=== PATIENT | female | born 1940 | race Caucasian/White ===

== ENCOUNTER → 2016-03-28 | Outpatient (CLI) | payer MEDICARE ==
[2016-03-28 12:23] LABS: PROTHROMBIN TIME 27.5 SEC (11.4-15.4)
== END ==
LOC: LAB 11:41
PROVIDERS: ATTEND Internal Medicine
DX: Z79.01 Long term (current) use of anticoagulants (principal)
CPT/HCPCS: 36415; 85610

== ENCOUNTER → 2016-05-02 | Outpatient (CLI) | payer MEDICARE ==
[2016-05-02 11:12] LABS: PROTHROMBIN TIME 23.4 SEC (11.4-15.4)
== END ==
LOC: LAB 10:55
PROVIDERS: ATTEND Internal Medicine
DX: Z79.01 Long term (current) use of anticoagulants (principal)
CPT/HCPCS: 36415; 85610

== ENCOUNTER → 2016-05-30 | Outpatient (CLI) | payer MEDICARE ==
[2016-05-30 13:35] LABS: PROTHROMBIN TIME 23.3 SEC (11.4-15.4)
== END ==
LOC: LAB 13:00
PROVIDERS: ATTEND Internal Medicine
DX: Z79.01 Long term (current) use of anticoagulants (principal)
CPT/HCPCS: 36415; 85610

== ENCOUNTER → 2016-07-04 | Outpatient (CLI) | payer MEDICARE | LOC: LAB 11:30 | PROVIDERS: ATTEND Internal Medicine | DX: Z79.01 Long term (current) use of anticoagulants (principal); Z51.81 Encounter for therapeutic drug level monitoring | CPT/HCPCS: 36415; 85610 ==

== ENCOUNTER → 2016-07-29 | Outpatient (CLI) | payer MEDICARE ==
[2016-07-29 10:57] LABS: PROTHROMBIN TIME 20.5 SEC (11.4-15.4)
== END ==
LOC: LAB 10:01
PROVIDERS: ATTEND Internal Medicine
DX: Z79.01 Long term (current) use of anticoagulants (principal); Z51.81 Encounter for therapeutic drug level monitoring
CPT/HCPCS: 36415; 85610

== ENCOUNTER → 2016-08-10 | Outpatient (CLI) | payer MEDICARE ==
[2016-08-10 12:06] LABS: PROTHROMBIN TIME 21.2 SEC (11.4-15.4)
== END ==
LOC: LAB 11:36
PROVIDERS: ATTEND Internal Medicine
DX: Z79.01 Long term (current) use of anticoagulants (principal)
CPT/HCPCS: 36415; 85610

== ENCOUNTER 2016-08-12 10:46 | Inpatient (IN) | payer MEDICARE, OTHER ==
--- NOTE | 2016-08-12 11:25 | RADIOLOGY REPORT (SQ) ---
EXAM DESCRIPTION: CT HEAD WITHOUT COMPLETED DATE/TIME: 08/12/2016 11:07 am REASON FOR STUDY: RIGHT SIDE WEAKNESS COMPARISON: None. TECHNIQUE: Axial images acquired through the brain without intravenous contrast. Images reviewed wi th bone, brain and subdural windows. Images stored on PACS. All CT scanners at this facility use dose modulation, iterative reconstruction, and/or weight based d osing when appropriate to reduce radiation dose to as low as reasonably achievable (ALARA). [facility]: Dose Right [facility]: CareDose [facility]: Dose Right [facility]: Teradose 4D [facility]: [employer] RADIATION DOSE: 64.61 mGy. LIMITATIONS: None. FINDINGS: VENTRICLES: Prominent. CEREBRUM: No masses. No hemorrhage. No midline shift. Areas of low density in the white matter mos t likely due to chronic micro-vascular ischemic change. No evidence for acute infarction. CEREBELLUM: No masses. No hemorrhage. No alteration of density. No evidence for acute infarction. EXTRAAXIAL SPACES: Mild age-related involutional change. No fluid collections. No masses. ORBITS AND GLOBE: No intra- or extraconal masses. Normal contour of globe without masses. CALVARIUM: No fracture. PARANASAL SINUSES: No fluid or mucosal thickening. SOFT TISSUES: No mass or hematoma. OTHER: No other significant finding. IMPRESSION: No acute abnormality in the brain. TECHNICAL DOCUMENTATION: JOB ID: [id number] Quality ID # [id number]: Final reports with documentation of one or more dose reduction techniques (e.g., Au tomated exposure control, adjustment of the mA and/or kV according to patient size, use of iterative reconstruction technique) 2010 [employer] All Rights Reserved
--- NOTE | 2016-08-12 11:31 | ER Document Report ---
ED Neuro Symptoms/Deficit - General Chief Complaint: Weakness Stated Complaint: POSSIBLE STROKE Time Seen by Provider: 08/12/16 11:16 Mode of Arrival: Stretcher Information source: Patient TRAVEL OUTSIDE OF THE [place] IN LAST 30 DAYS: No - HPI Patient complains to provider of: Difficulty standing, Difficulty walking, Weakness Onset: Just prior to arrival Awoke with symptoms: No Quality of pain: No pain Baseline Cognitive: Alert, oriented X 3 Baseline Gait: Walks w/o assistance Alert To: Name/Voice Patient Orientation: Person, Place, Time, Events New weakness: RUE, RLE Decreased ability to stand/walk: Off balance Associated symptoms: None Similar symptoms previously: Yes Recently seen / treated by doctor: Yes Notes: Patient is a 76-year-old female with a history of TIA 4 years ago, as well as mitral valve and tricuspid valve repair, history of a flutter in the past, who presents to the emergency room complaining of right-sided weakness that started just prior to arrival, patient was at cardiac rehab for maintenance therapy when she developed weakness and was unable to ambulate on the treadmill which she generally does, she does note that her INR was taken on Monday and noted to be 1.7, she was advised to take an extra half the dose of Coumadin on Monday , she takes 6 mg daily on the regular, she denies any headache, no shortness of breath or chest pain, her symptoms are improved since arriving to the emergency room as she reports she only feels minimal weakness in the right upper and lower extremity - Related Data Allergies/Adverse Reactions: adhesive tape [Adhesive Tape] Allergy (Verified 08/23/11 01:40) alendronate sodium [From Fosamax] Allergy (Verified 08/23/11 01:40) codeine [Codeine] Allergy (Verified 08/23/11 01:40) nickel [Nickel] Allergy (Verified 08/23/11 01:40) nitrofurantoin [Nitrofurantoin] Allergy (Verified 08/23/11 01:40) pseudoephedrine HCl [From Sudafed] Allergy (Verified 08/23/11 01:40) Sulfa (Sulfonamide Antibiotics) Allergy (Verified 08/23/11 01:40) diltiazem HCl [From Cardizem] Adverse Reaction (Intermediate, Verified 08/26/11 11:29) Past Medical History - General Information source: Patient - Social History Smoking Status: Never Smoker Family History: Reviewed & Not Pertinent Patient has suicidal ideation: No Patient has homicidal ideation: No - Past Medical History Cardiac Medical History: Reports: Hx Heart Murmur Denies: Hx Atrial Fibrillation, Hx Congestive Heart Failure, Hx Coronary Artery Disease, Hx Heart Attack, Hx Hypercholesterolemia, Hx Hypertension, Hx Peripheral Vascular Disease, Hx Pulmonary Embolism Pulmonary Medical History: Reports: Hx Bronchitis Denies: Hx Asthma, Hx COPD, Hx Pneumonia, Hx Respiratory Failure, Hx Sleep Apnea, Hx Tuberculosis Neurological Medical History: Denies: Hx Cerebrovascular Accident, Hx Seizures Renal/ Medical History: Denies: Hx End Stage Renal Disease, Hx Kidney Stones, Hx Ovarian Cysts, Hx Peritoneal Dialysis, Hx Pelvic Inflammatory Disease Malignancy Medical History: Denies: Hx Breast Cancer, Hx Cervical Cancer, Hx Leukemia, Hx Lung Cancer, Hx Ovarian Cancer GI Medical History: Denies: Hx Crohn's Disease, Hx Gastroesophageal Reflux Disease, Hx Hepatitis, Hx Hiatal Hernia, Hx Irritable Bowel, Hx Liver Failure, Hx Ulcer Infectious Medical History: Denies: Hx Hepatitis, Hx HIV Past Surgical History: Reports: Hx Appendectomy, Hx Section, Hx Hysterectomy, Hx Tonsillectomy. Denies: Hx Bowel Surgery, Hx Cholecystectomy, Hx Colostomy, Hx Coronary Artery Bypass Graft, Hx Gastric Bypass Surgery, Hx Herniorrhaphy, Hx Mastectomy, Hx Open Heart Surgery, Hx Pacemaker, Hx Tubal Ligation - Immunizations Hx Diphtheria, Pertussis, Tetanus Vaccination: Yes Hx Pneumococcal Vaccination: 03/13/06 Review of Systems - Review of Systems Constitutional: No symptoms reported EENT: No symptoms reported Cardiovascular: No symptoms reported Respiratory: No symptoms reported Gastrointestinal: No symptoms reported Genitourinary: No symptoms reported Female Genitourinary: No symptoms reported Musculoskeletal: No symptoms reported Skin: No symptoms reported Hematologic/Lymphatic: No symptoms reported Neurological/Psychological: See HPI -: Yes All other systems reviewed and negative Physical Exam - Vital signs Vitals: Temp Pulse Resp BP Pulse Ox 97.6 F 71 16 139/92 H 97 08/12/16 10:48 08/12/16 10:48 08/12/16 10:48 08/12/16 10:48 08/12/16 10:48 Interpretation: Normal - General General appearance: Appears well, Alert - HEENT Head: Normocephalic, Atraumatic Eyes: Normal Pupils: PERRL - Respiratory Respiratory status: No respiratory distress Chest status: Nontender Breath sounds: Normal Chest palpation: Normal - Cardiovascular Rhythm: Regular Heart sounds: S1 appreciated, S2 appreciated Murmur: No - Abdominal Inspection: Normal Distension: No distension Bowel sounds: Normal Tenderness: Nontender Organomegaly: No organomegaly - Back Back: Normal, Nontender - Extremities General upper extremity: Normal inspection, Nontender, Normal color, Normal temperature General lower extremity: Normal inspection, Nontender, Normal color, Normal temperature. No: Lynn's sign - Neurological Neuro grossly intact: Yes Cognition: Normal Orientation: AAOx4 [place] Coma Scale Eye Opening: Spontaneous [place] Coma Scale Verbal: Oriented Jannie Coma Scale Motor: Obeys Commands [place] Coma Scale Total: 15 Speech: Normal Cranial nerves: Facial palsy - Right-sided facial droop Motor strength normal: LUE, LLE. No: RUE, RLE - Right upper extremity/right lower extremity 4/5 strength Sensory: Normal - Psychological Associated symptoms: Normal affect, Normal mood - Skin Skin Temperature: Warm Skin Moisture: Dry Skin Color: Normal Course - Re-evaluation Re-evalutation: 08/12/16 12:34 Reports feeling much better, she was able to ambulate to the bathroom without difficulty, she continues to have a very slight right-sided facial droop but all other symptoms are completely resolved at this point in time, patient was discussed with the hospitalist who agrees to admit as an observation for likely TIA, for further evaluation and treatment - Vital Signs Vital signs: Temp Pulse Resp BP Pulse Ox 97.6 F 71 16 139/92 H 98 08/12/16 10:48 08/12/16 10:48 08/12/16 10:48 08/12/16 10:48 08/12/16 11:22 - Laboratory Result Diagrams: 08/12/16 11:20 08/12/16 11:20 - Diagnostic Test Radiology reviewed: Image reviewed, Reports reviewed - EKG Interpretation by Me EKG shows normal: Sinus rhythm Rate: Normal Rhythm: NSR - Transfer of Care Care transferred to following provider: Dr. Love Critical Care Note - Critical Care Note Total time excluding time spent on procedures (mins): 30 Comments: Acute onset right-sided weakness consistent with CVA/TIA, requiring frequent reevaluation, observation and admission to hospitalist service ED [employer]/Exc Criteria - Date/Time patient last known well: Date/Time: 08/12/2016 1000 - Date/Time patient arrived in ED: _: 08/12/2016 1048 - Inclusion Criteria: 1: Patient presented to ED within 3 hours of acute ischemic stroke symptom onset ? -: Yes 2: Did baseline CT exclude intracranial hemorrhage and/or other risk factors? -: Yes 3: Is the age of the patient 18 years of age or greater? -: Yes : If any of the above questions are answered "NO" then stop, patient is not a candidate for Alteplase, : If all of the above questions are answered "YES" then continue with Exclusion Criteria. - Exclusion Criteria: 1: Is there evidence of intracranial hemorrhage on baseline CT? -: No 2: Is there suspicion of subarachnoid hemorrhage (even if CT negative)? -: No 3: Is there a history of serious head trauma, recent previous stroke or MD within 3 months? -: No 4: Does the patient have a clinical presentation consistent with MD or post-MD pericarditis? -: No 5: Is there history of intracranial hemorrhage? -: No 6: On repeated measurement is Systolic BP greater than 185mmHg or Diastolic BP greater that 110 mmHg and is aggressive treatment needed to reduce blood pressure to these limits (e.g. constant infusion of an anti-hypertensive)? -: No 7: Did the patient awake with stroke symptoms? -: No 8: Has the patient had a lumbar puncture or an arterial puncture at a non- compressile site within 7 days? -: No 9: With in the last 14 days did the patient have surgery or major trauma? -: No 10: Is the patient or less than 2 weeks? -: No 11: Was there any active bleeding or acute trauma? -: No 12: Does the patient have intracranial neoplasm, arteriovenous malformation or aneurysm? -: No 13: Does the patient have abnormal glucose (less than 50 or greater than 400mg/ dl)? Record glucose in Comment. -: No 14: Patient has rapidly improving symptoms at the time Alteplase is to be Administered. -: Yes 15: Does the patient have any risks for bleeding, including but not limited to: a.: Current use of Coumadin with PT greater than 15 seconds or INR greater than 1.7. b.: Current use of Pradaxa (Dabigatran). c.: Heparin administereed within the past 48 hours and PTT elevated. d.: Platelet count less than 100,000/mm. e.: Major surgery or serious trauma within 14 days. f.: Gastrointestinal or gynecological urinary bleeding within 14 days. g.: Myocardial Infarction (MD) within 3 months. -: No : If the answer to any of the above questions is "YES" then stop, the patient is not a candidate for Alteplase. : If the answer to all of the above questions is "NO" then the patient may be eligible for the Administration of Alteplase. : If the patient is noted to have seizure activity at onset of Stroke symptoms; Consult Neurologist for further evaluation. - The patient is: -: Included and is eligible to receive Alteplase. *Initiate bed placement at higher level of care* Reviewd risks & benefits of thrombolytic therapy: I have reviewed the risks and benefits of thrombolytic therapy with the patient and/or his/her family. -: Excluded and not eligible to receive Alteplase for the above exclusions. --: Yes - Rapidly improving symptoms -: Excluded and not eligible to receive Alteplase for other reasons (specify in comments): - Diagnosis of TIA: -: Patient presented with transient symptoms that are now resolved and no other neurologic findings are currently present. List symptoms in comments. -: Yes -: Patient is NOT a candidate for tPA. -: Yes -: ____(put name in comment) has been consulted for admission and continued evaluation of risk factor assessment. Comment: Ivan Discharge - Discharge Clinical Impression: Subtherapeutic anticoagulation Transient ischemic attack Qualifiers: Transient cerebral ischemia type: unspecified Qualified Code(s): G45.9 - Transient cerebral ischemic attack, unspecified Condition: Stable Disposition: ADMITTED OBSERVATION Admitting Provider: Hospitalist Unit Admitted: Telemetry Referrals: CLAUDIA BARROS MD [Primary Care Provider] - Follow up as needed
[2016-08-12 11:40] LABS: ABSOLUTE BASOPHILS # (AUTO) 0.1 10^3/uL (0.0-0.2); ABSOLUTE EOSINOPHILS # (AUTO) 0.1 10^3/uL (0.0-0.6); ABSOLUTE LYMPHOCYTES (AUTO) 1.3 10^3/uL (0.5-4.7); ABSOLUTE MONOCYTES (AUTO) 0.6 10^3/uL (0.1-1.4); ABSOLUTE NEUT (AUTO) 4.1 10^3/uL (1.7-8.2); BASOPHILS % (AUTO) 0.9 % (0-2); EOSINOPHILS % (AUTO) 1.4 % (0-6); HEMATOCRIT 43.4 % (36.0-47.0); HEMOGLOBIN 14.6 g/dL (12.0-15.5); HGB HCT DIFFERENCE 0.4; LYMPHOCYTES % (AUTO) 21.1 % (13-45); MEAN CORPUSCULAR HEMOGLOBIN 31.7 pg (27.0-33.4); MEAN CORPUSCULAR HGB CONC 33.6 g/dL (32.0-36.0); MEAN CORPUSCULAR VOLUME 94 fl (80-97); MONOCYTES % (AUTO) 9.2 % (3-13); PARTIAL THROMBOPLASTIN TIME 40.5 SEC (23.5-35.8); PROTHROMBIN TIME 23.1 SEC (11.4-15.4); RED CELL DISTRIBUTION WIDTH 13.1 % (11.5-14.0); SEGMENTED NEUTROPHILS % (AUTO) 67.4 % (42-78); WHITE BLOOD COUNT 6.1 10^3/uL (4.0-10.5)
--- NOTE | 2016-08-12 11:44 | RADIOLOGY REPORT (SQ) ---
EXAM DESCRIPTION: CHEST SINGLE VIEW COMPLETED DATE/TIME: 08/12/2016 11:20 am REASON FOR STUDY: RIGHT SIDE WEAKNESS COMPARISON: 08/22/2011 EXAM PARAMETERS: NUMBER OF VIEWS: One view. TECHNIQUE: Single frontal radiographic view of the chest acquired. RADIATION DOSE: NA LIMITATIONS: None. FINDINGS: LUNGS AND PLEURA: The lungs are hyperexpanded. There are no pulmonary infiltrates or pleu ral effusions. MEDIASTINUM AND HILAR STRUCTURES: No masses. Contour normal. HEART AND VASCULAR STRUCTURES: Heart normal in size. Normal vasculature. BONES: No acute findings. HARDWARE: Surgical clips in the upper mediastinum. OTHER: No other significant finding. IMPRESSION: Chronic lung changes with no acute cardiopulmonary disease. TECHNICAL DOCUMENTATION: JOB ID: [id number]
[2016-08-12 12:02] LABS: ALANINE AMINOTRANSFERASE 32 U/L (9-52); ALBUMIN 4.2 g/dL (3.5-5.0); ALKALINE PHOSPHATASE 84 U/L (38-126); ANION GAP 11 (5-19); ASPARTATE AMINO TRANSFERASE 30 U/L (14-36); BILIRUBIN,DIRECT 0.2 mg/dL (0.0-0.4); BILIRUBIN,TOTAL 0.7 mg/dL (0.2-1.3); BLOOD UREA NITROGEN 19 mg/dL (7-20); CALCIUM 9.6 mg/dL (8.4-10.2); CARBON DIOXIDE 27 mmol/L (22-30); CHLORIDE 102 mmol/L (98-107); CREATINE KINASE 96 U/L (30-135); CREATININE RESULT 0.79 mg/dL (0.52-1.25); GLUCOSE 88 mg/dL (75-110); POTASSIUM 4.6 mmol/L (3.6-5.0); SODIUM 140.1 mmol/L (137-145); TOTAL PROTEIN 7.3 g/dL (6.3-8.2)
[2016-08-12 12:20] LABS: CREATINE KINASE MB 0.83 ng/mL (<4.55)
[2016-08-12 12:22] LABS: TROPONIN I < 0.012 ng/mL
--- NOTE | 2016-08-12 13:51 | PDOC H&P ---
History of Present Illness Admission Date/PCP: 08/12/16 12:42 CLAUDIA BARROS, Patient complains of: weakness History of Present Illness: KOJO SALAS is a 76 year old female pt of Dr Saxena who presents from cardiac rehab where she had been working out on the treadmill when she suddenly noted numbness of her right foot that progressed to include her right arm and then affected her speech with some slurring, all of which is similar to when she had her CVA 4 yrs ago. she denies recent illness, cough, congestion, CALZ[place], dizziness, palpitations, fevers/chills, stiff neck, difficulty swallowing. review of the old record shows MRI with Left sided ischemic CVA. eval in ED shows persistent mild paresthesias but resolution of her weakness an improving slurred speech. she is already on coumadin & ASA for chronic afib and valve repairs with INR 1.93 so with resolving symptoms she is not candidate for thrombolytics. Past Medical History Cardiac Medical History: Reports: Heart Murmur Denies: Atrial Fibrillation, Congestive Heart Failure, Coronary Artery Disease, Myocardial Infarction, Hyperlipidema, Hypertension, Peripheral Vascular Disease, Pulmonary Embolism Pulmonary Medical History: Reports: Bronchitis Denies: Asthma, Chronic Obstructive Pulmonary Disease (COPD), Pneumonia, Respiratory Failure, Sleep Apnea, Tuberculosis Neurological Medical History: Denies: Seizures Renal/ Medical History: Denies: End Stage Renal Disease Malignancy Medical History: Denies: Breast Cancer, Cervical Cancer, Leukemia, Lung Cancer, Ovarian Cancer GI Medical History: Denies: Crohn's Disease, Gastroesophageal Reflux Disease, Hepatitis, Hiatal Hernia Hematology: Reports: Anemia - acute blood loss after heart valve repair Denies: Hemophilia, Sickle Cell Disease Infectious Medical History: Denies: HIV Past Surgical History Past Surgical History: Reports: Appendectomy, Section, Hysterectomy, Tonsillectomy Denies: Amputation, Cholecystectomy, Colostomy, Coronary Artery Bypass Graft , Gastric Bypass Surgery, Herniorrhaphy, Mastectomy, Pacemaker, Tubal Ligation Social History Information Source: Patient Smoking Status: Never Smoker Frequency of Alcohol Use: None Hx Recreational Drug Use: No Hx Prescription Drug Abuse: No - Advance Directive Resuscitation Status: Full Code Family History Family History: Reviewed & Not Pertinent Parental Family History Reviewed: Yes Children Family History Reviewed: Yes Sibling(s) Family History Reviewed.: Yes Medication/Allergy Allergies/Adverse Reactions: adhesive tape [Adhesive Tape] Allergy (Verified 08/23/11 01:40) alendronate sodium [From Fosamax] Allergy (Verified 08/23/11 01:40) codeine [Codeine] Allergy (Verified 08/23/11 01:40) nickel [Nickel] Allergy (Verified 08/23/11 01:40) nitrofurantoin [Nitrofurantoin] Allergy (Verified 08/23/11 01:40) pseudoephedrine HCl [From Sudafed] Allergy (Verified 08/23/11 01:40) Sulfa (Sulfonamide Antibiotics) Allergy (Verified 08/23/11 01:40) diltiazem HCl [From Cardizem] Adverse Reaction (Intermediate, Verified 08/26/11 11:29) Review of Systems Constitutional: ABSENT: chills, fever(s), headache(s), weight gain, weight loss Eyes: ABSENT: visual disturbances Ears: ABSENT: hearing changes Cardiovascular: ABSENT: chest pain, dyspnea on exertion, edema, orthropnea, palpitations Respiratory: ABSENT: cough, hemoptysis Gastrointestinal: ABSENT: abdominal pain, constipation, diarrhea, hematemesis, hematochezia, nausea, vomiting Genitourinary: ABSENT: dysuria, hematuria Musculoskeletal: ABSENT: joint swelling Integumentary: ABSENT: rash, wounds Neurological: PRESENT: abnormal speech, focal weakness, numbness, paresthesias. ABSENT: abnormal gait, confusion, dizziness, syncope Psychiatric: ABSENT: anxiety, depression, homidical ideation, suicidal ideation Endocrine: ABSENT: cold intolerance, heat intolerance, polydipsia, polyuria Hematologic/Lymphatic: ABSENT: easy bleeding, easy bruising Physical Exam Vital Signs: Temp Pulse Resp BP Pulse Ox 97.6 F 71 17 134/68 H 100 08/12/16 10:48 08/12/16 12:00 08/12/16 13:16 08/12/16 13:16 08/12/16 13:16 General appearance: PRESENT: no acute distress, well-developed, well-nourished Head exam: PRESENT: atraumatic, normocephalic Eye exam: PRESENT: EOMI. ABSENT: conjunctival injection, nystagmus, scleral icterus Mouth exam: PRESENT: moist, neck supple Neck exam: PRESENT: full ROM. ABSENT: tenderness, thyromegaly, tracheal deviation Respiratory exam: PRESENT: clear to auscultation loreta. ABSENT: accessory muscle use Cardiovascular exam: PRESENT: RRR. ABSENT: systolic murmur Pulses: PRESENT: normal radial pulses, normal dorsalis pedis pul Vascular exam: PRESENT: normal capillary refill GI/Abdominal exam: PRESENT: normal bowel sounds, soft. ABSENT: tenderness Extremities exam: PRESENT: pedal edema. ABSENT: calf tenderness Musculoskeletal exam: PRESENT: ambulatory, full ROM Neurological exam: PRESENT: alert, awake, oriented to person, oriented to place , oriented to time, oriented to situation, reflexes normal, motor sensory deficit - numbness Rt cheek; 3 beat clonus left, 2 beat clonus right ankle. ABSENT: CN II-XII grossly intact - slurred speech, blunted Rt nasolabial fold, left corner of mouth fails to elevate with smile Psychiatric exam: PRESENT: appropriate affect, normal mood Results Laboratory Results: labs reviewed and unremarkable Impressions: Chest X-Ray 08/12/16 10:54 IMPRESSION: Chronic lung changes with no acute cardiopulmonary disease. Head CT 08/12/16 10:54 IMPRESSION: No acute abnormality in the brain. Status: Image reviewed by me - agree with rads Assessment & Plan - Diagnosis (1) CVA (cerebral vascular accident) Qualifiers: CVA mechanism: unspecified Qualified Code(s): I63.9 - Cerebral infarction, unspecified Is this a current diagnosis for this admission?: YesPlan: persistent but improving symptoms that may not resolve within 24 hrs; admit for overnight monitoring on telemetry. ck MRI brain, carotid dopplers. she reports nl lipid panel at her cardiologists office just a couple weeks ago. ck B12 level. continue ASA and coumadin, discussed addition of statin for its anti -inflammatory and plaque stabilizing characteristics but she is resistant. (2) Valvular disease Is this a current diagnosis for this admission?: YesPlan: stable. hx of tricuspid and mitral annuloplasty. (3) Chronic a-fib Is this a current diagnosis for this admission?: YesPlan: in NSR on monitor at present, continue tikosyn from home once dose confirmed. continue anticoagulation - Time Time Spent: 50 to 70 Minutes Medications reviewed and adjusted accordingly: Yes Anticipated discharge: Home Within: within 48 hours - Inpatient Certification Based on my medical assessment, after consideration of the patient's comorbidities, presenting symptoms, or acuity I expect that the services needed warrant INPATIENT care.: Yes I certify that my determination is in accordance with my understanding of Medicare's requirements for reasonable and necessary INPATIENT services [42 CFR 412.3e].: Yes Medical Necessity: Significant Comorbidiites Make Outpatient Treatment Too Risky , Need Close Monitoring Due to Risk of Patient Decompensation, Need For Continuous Telemetry Monitoring, Risk of Diagnosis Which Will Require Inpatient Eval/Care/Monitoring
[2016-08-12] MEDS ORDERED: ACETAMINOPHEN 325 MG TABLET PO PRN (13:54)
[2016-08-12] MEDS ORDERED: ONDANSETRON HCL INJ/PF 4 MG/2 ML SDV IV PRN (14:00)
[2016-08-12 14:22] LABS: MAGNESIUM 2.2 mg/dL (1.6-2.3); PHOSPHORUS 3.7 mg/dL (2.5-4.5)
--- NOTE | 2016-08-12 17:06 | EKG REPORT ---
SEVERITY:- ABNORMAL ECG - SINUS RHYTHM LEFT AXIS DEVIATION PROBABLE ANTEROSEPTAL INFARCT, AGE INDETERM BORDERLINE PROLONGED QT INTERVAL : Confirmed by: Emmanuel Can 12-Aug-2016 17:06:12
--- NOTE | 2016-08-12 17:56 | RADIOLOGY REPORT (SQ) ---
EXAM DESCRIPTION: CAROTID DOPPLER COMPLETED DATE/TIME: 08/12/2016 5:23 pm REASON FOR STUDY: CVA R53.1 WEAKNESS COMPARISON: None. TECHNIQUE: Grayscale ultrasound, Doppler velocity and spectra, and color Doppler images acquired of the extra-cranial carotid and vertebral arteries. Images stored on PACS. LIMITATIONS: None. FINDINGS: RIGHT CAROTID CCA Velocities: Peak systolic proximally 76 centimeters/second, peak systolic distal 61 centimeters/s econd ICA Velocities Peak systolic 89 cm/s. End diastolic 33 cm/s. Proximal ICA/CCA peak systolic ratio 1.4. Spectra normal. No significant plaque. LEFT CAROTID CCA Velocities: Peak systolic proximal 95 peak systolic distal 76 ICA Velocities Peak systolic 94 cm/s. End diastolic 34 cm/s. Proximal ICA/CCA peak systolic ratio 1.2. Spectra normal. No significant plaque. VERTEBRAL ARTERIES: Antegrade flow. Normal waveforms. SUBCLAVIAN ARTERIES: No finding. OTHER: No other significant finding. IMPRESSION: NO HEMODYNAMICALLY SIGNIFICANT STENOSIS. COMMENT: Quality ID #[id number]: Velocity criteria are extrapolated from the diameter data as defined by t he Society of Radiologists in Ultrasound Consensus Conference. Radiology 2003: 229; 340-346. TECHNICAL DOCUMENTATION: JOB ID: [id number] [employer]- All Rights Reserved
--- NOTE | 2016-08-12 18:27 | RADIOLOGY REPORT (SQ) ---
EXAM DESCRIPTION: MRI HEAD WITHOUT COMPLETED DATE/TIME: 08/12/2016 6:11 pm REASON FOR STUDY: acute neurologic syndrome R53.1 WEAKNESS COMPARISON: Head CT from 08/12/2016 and MRI from 06/14/2013 TECHNIQUE: Multiplanar imaging includes non-contrasted T1, T2, FLAIR, and diffusion with ADC map seq uences. Images stored on PACS. LIMITATIONS: None. FINDINGS: ANATOMY: No anomalies. Normal vascular flow voids. Pituitary fossa normal. CSF SPACES: Atrophy induced prominence of ventricles and CSF spaces. CEREBRUM: High signal intensity lesions scattered throughout the white matter on FLAIR imaging with d istribution suggesting micro-vascular ischemic changes. Multiple foci of chronic hemosiderin scatter ed throughout. No evidence of acute hemorrhage, mass, or extraaxial fluid collection. POSTERIOR FOSSA: Multiple scattered foci of chronic hemosiderin. No acute hemorrhage. No edema, roberto s or mass effect. Internal auditory canals, cerebello-pontine angles, mastoids normal. DIFFUSION IMAGING: Single punctate focus of mild restricted diffusion within the superficial white ma tter john frontal lobe may represent acute lacunar infarct type infarct. ORBITS: No masses. Globes normal. PARANASAL SINUSES: No fluid levels. Mucosa normal. OTHER: No other significant finding. IMPRESSION: SINGLE PUNCTATE FOCUS OF MILDLY RESTRICTED DIFFUSION INVOLVING THE SUPERFICIAL WHITE MAT TER RIGHT FRONTAL LOBE MAY REPRESENT ACUTE LACUNAR-TYPE INFARCT. NO LARGE TERRITORY INFARCT, ACUTE H EMORRHAGE, OR MASS LESION IDENTIFIED. MULTIPLE FOCI OF CHRONIC HEMOSIDERIN THROUGHOUT CAN BE SEEN WITH CHRONIC HYPERTENSION OR AMYLOID LI OPATHY. CORRELATE CLINICALLY. ADDITIONAL SENESCENT CHANGE ABOVE. TECHNICAL DOCUMENTATION: JOB ID: [id number]- All Rights Reserved
[2016-08-13] MEDS ORDERED: DOFETILIDE 125 MCG CAPSULE ONE (01:19)
[2016-08-13] MEDS ORDERED: DOFETILIDE 125 MCG CAPSULE PO ONE (01:30)
[2016-08-13] MEDS ORDERED: DOFETILIDE 125 MCG CAPSULE PO SCH (10:00)
[2016-08-13] MEDS ORDERED: ASPIRIN 81 MG TABLET, ENT COATED PO SCH (10:00)
[2016-08-13 10:21] VITALS: BP 134/60
--- NOTE | 2016-08-13 14:03 | PDOC DISCHARGE SUMMARY ---
General - Admit/Disc Date/PCP Admission Date/Primary Care Provider: 08/12/16 13:56 CLAUDIA BARROS, Discharge Date: 08/13/16 - Discharge Diagnosis (1) CVA (cerebral vascular accident) Is this a current diagnosis for this admission?: YesSummary: MRI confirms small lacunar type infarct, her only residual symptom is Rt pronator drift otherwise she is back to baseline and stable for dc home. she is to resume her coumadin and other home meds, discuss with dr dia about adding statin. continue low dose ASA. (2) Valvular disease Is this a current diagnosis for this admission?: Yes (3) Chronic a-fib Is this a current diagnosis for this admission?: Yes - Additional Information Resuscitation Status: Full Code Discharge Diet: As Tolerated Discharge Activity: Activity As Tolerated Home Medications: Aspirin [Adult Low Dose Aspirin EC] 81 mg PO DAILY 08/12/16 Dofetilide [Tikosyn] 250 mg PO Q12 08/12/16 Metoprolol Tartrate [Lopressor 25 mg Tablet] 12.5 mg PO Q12 08/12/16 Hernando-3 Fatty Acids/Fish Oil [Theragran-M 1,200 mg Softgel] 1 tab PO DAILY 08/12 Warfarin Sodium [Coumadin] 6 mg PO DAILY 08/12/16 History of Present Illness Patient complains of: rt weak, slurred speech History of Present Illness: KOJO SALAS is a 76 year old female pt of Dr Saxena who presents from cardiac rehab where she had been working out on the treadmill when she suddenly noted numbness of her right foot that progressed to include her right arm and then affected her speech with some slurring, all of which is similar to when she had her CVA 4 yrs ago. she denies recent illness, cough, congestion, CALZADA, dizziness, palpitations, fevers/chills, stiff neck, difficulty swallowing. review of the old record shows MRI with Left sided ischemic CVA. Hospital Course Hospital Course: eval in ED shows persistent mild paresthesias but resolution of her weakness an improving slurred speech. she is already on coumadin & ASA for chronic afib and valve repairs with INR 1.93 so with resolving symptoms she is not candidate for thrombolytics. she was admitted and monitored overnight without significant findings on telemetry, no ectopy and her rate remained controlled. her symptoms resolved overnight and she is stable and anxious for d/c home. MRI shows a new small lacunar infarct, see report for details. carotid dopplers were negative for plaque or obstruction/occlusion. labs unremarkable. she is stable for d/c home at this time, return ot the ED for worsening condition, f/u PCP next week for INR/coumadin dose adjustment and routine hosp f /u Physical Exam Vital Signs: Temp Pulse Resp BP Pulse Ox 98.8 F 71 16 134/60 H 98 08/13/16 10:23 08/13/16 10:23 08/13/16 10:23 08/13/16 10:23 08/13/16 10:23 Intake & Output 08/12/16 08/13/16 08/14/16 06:59 06:59 06:59 Intake Total 1384 Balance 1384 Weight 67.6 kg General appearance: PRESENT: no acute distress, well-developed, well-nourished Head exam: PRESENT: atraumatic, normocephalic Eye exam: PRESENT: EOMI, PERRLA. ABSENT: conjunctival injection, scleral icterus Mouth exam: PRESENT: moist, neck supple Neck exam: ABSENT: carotid bruit, tenderness Respiratory exam: PRESENT: clear to auscultation loreta. ABSENT: accessory muscle use Cardiovascular exam: PRESENT: RRR. ABSENT: systolic murmur Pulses: PRESENT: normal radial pulses, normal dorsalis pedis pul Vascular exam: PRESENT: normal capillary refill GI/Abdominal exam: PRESENT: normal bowel sounds, soft. ABSENT: tenderness Neurological exam: PRESENT: alert, awake, oriented to time, oriented to situation, reflexes normal, normal gait. ABSENT: aphasic Psychiatric exam: PRESENT: appropriate affect, normal mood Skin exam: PRESENT: dry, warm Results Impressions: Carotid Doppler Study 08/12/16 00:00 IMPRESSION: NO HEMODYNAMICALLY SIGNIFICANT STENOSIS. Chest X-Ray 08/12/16 10:54 IMPRESSION: Chronic lung changes with no acute cardiopulmonary disease. Head CT 08/12/16 10:54 IMPRESSION: No acute abnormality in the brain. Head MRI 08/12/16 14:01 IMPRESSION: SINGLE PUNCTATE FOCUS OF MILDLY RESTRICTED DIFFUSION INVOLVING THE SUPERFICIAL WHITE MATTER RIGHT FRONTAL LOBE MAY REPRESENT ACUTE LACUNAR-TYPE INFARCT. NO LARGE TERRITORY INFARCT, ACUTE HEMORRHAGE, OR MASS LESION IDENTIFIED. MULTIPLE FOCI OF CHRONIC HEMOSIDERIN THROUGHOUT CAN BE SEEN WITH CHRONIC HYPERTENSION OR AMYLOID ANGIOPATHY. CORRELATE CLINICALLY. ADDITIONAL SENESCENT CHANGE ABOVE. Qualifiers PATEINT BEING DISCHARGED WITH ANY OF THE FOLLOWING DIAGNOSIS?: Stroke VTE patient discharged on overlapping Therapy?: Yes Stroke Pt being discharged on Anti-thrombolytic therapy?: Yes Stroke Pt being discharged on Anti-coagulation therapy?: Yes Stroke Pt being discharged on Statins?: No Reason(s) for not prescribing Statins therapy:: Drug declined by patient Plan Discharge Plan: f/u PCP in one week Time Spent: Greater than 30 Minutes
== END 2016-08-13 11:14 | disposition home or self-care (01) | DRG 65 ==
LOC: ER 10:46 → UNDOADMOB 12:42 → EH 12:42 → OBSVTOIN 13:56 → 3W 18:00
PROVIDERS: ADMIT Internal Medicine; ATTEND Internal Medicine
DX: I63.9 Cerebral infarction, unspecified (principal); G81.91 Hemiplegia, unspecified affecting right dominant side; R47.81 Slurred speech; R29.810 Facial weakness; I48.2 Chronic atrial fibrillation; I08.1 Rheumatic disorders of both mitral and tricuspid valves; Z79.01 Long term (current) use of anticoagulants; Z86.73 Personal history of transient ischemic attack (TIA), and cerebral infarction without residual deficits; Z88.2 Allergy status to sulfonamides; Z88.6 Allergy status to analgesic agent; Z88.8 Allergy status to other drugs, medicaments and biological substances; Z90.49 Acquired absence of other specified parts of digestive tract; Z90.710 Acquired absence of both cervix and uterus; Z98.890 Other specified postprocedural states
CPT/HCPCS: 36415; 70450; 70551; 71010; 80053; 82550; 82553; 82607; 83735; 84100; 84443; 84484; 85025; 85610; 85730; 93005; 93010; 93880; 99291; G8978-GP; G8979-GP; G8980-GP; J3490

== ENCOUNTER → 2016-08-17 | Outpatient (CLI) | payer MEDICARE, OTHER ==
[2016-08-17 11:11] LABS: PROTHROMBIN TIME 22.6 SEC (11.4-15.4)
== END ==
LOC: LAB 10:07
PROVIDERS: ATTEND Internal Medicine
DX: Z79.01 Long term (current) use of anticoagulants (principal)
CPT/HCPCS: 36415; 85610

== ENCOUNTER 2019-01-01 08:57 | Inpatient (IN) | payer MEDICARE, OTHER ==
--- NOTE | 2019-01-01 09:25 | ER Document Report ---
ED Neuro Symptoms/Deficit - General Chief Complaint: Weakness Stated Complaint: WEAKNESS Time Seen by Provider: 01/01/19 09:11 Primary Care Provider: CLAUDIA BARROS MD [ACTIVE STAFF] - Follow up as needed TRAVEL OUTSIDE OF THE [place] IN LAST 30 DAYS: No - HPI Notes: Patient is a 78-year-old female that presents to the emergency department for chief complaint of right hand numbness and difficulty ambulating. Patient states at 10:30 PM last night she started to feel numbness in her right hand. When she woke up this morning the numbness was still present. She states she has had a hard time ambulating today and feels off balance. She denies dizziness. Patient does have a history of stroke and TIA in the past. She is anticoagulated on Eliquis for history of atrial fibrillation. Patient denies recent head injury. Past Medical History: TIA, Stroke, Afib, HTN Past Surgical History: Reviewed in chart Social History: Denies drugs alcohol or tobacco, lives independently at home. Family History: Reviewed and noncontributory for presenting illness Allergies: Reviewed, see documented allergy list. REVIEW OF SYSTEMS: CONSTITUTIONAL : No fever No chills No diaphoresis No recent illness EENT: No vision changes No congestion No sore throat CARDIOVASCULAR: No chest pain No palpitations RESPIRATORY: No shortness of breath No cough No difficulty breathing GASTROINTESTINAL: No abdominal pain No nausea No vomiting No diarrhea GENITOURINARY: No dysuria No hematuria No difficulty urinating MUSCULOSKELETAL: No back pain No leg pain No arm pain SKIN: No rashes No lesions LYMPHATIC: No swollen, enlarged glands. NEUROLOGICAL: No lightheadedness No headache weakness paresthesias PSYCHIATRIC: No anxiety No depression PHYSICAL EXAMINATION: Vital signs reviewed, nursing noted reviewed. GENERAL: Well-appearing, well-nourished and in no acute distress. HEAD: Atraumatic, normocephalic. EYES: Eyes appear normal, extraocular movements intact, sclera anicteric, conjunctiva are normal. ENT: nares patent, oropharynx clear without exudates. Moist mucous membranes. NECK: Normal range of motion, supple without lymphadenopathy LUNGS: Breath sounds clear to auscultation bilaterally and equal. No wheezes rales or rhonchi. HEART: Regular rate and rhythm without murmurs ABDOMEN: Soft, nontender, normoactive bowel sounds. No rebound, guarding, or rigidity. No masses appreciated. EXTREMITIES: Nontender, good range of motion, no pitting or edema. NEUROLOGICAL: Alert, GCS 15, NIH 3. Right lower extremity weakness. No drift with right upper extremity but grizzly worker strength less on right than compared to l eft. Mildly slurred speech. Slight right facial droop. Sensory grossly intact on exam. PSYCH: Normal mood, normal affect. SKIN: Warm, Dry, normal turgor, no rashes or lesions noted on exposed skin - Related Data Allergies/Adverse Reactions: adhesive tape [Adhesive Tape] Allergy (Verified 08/23/11 01:40) alendronate sodium [From Fosamax] Allergy (Verified 08/23/11 01:40) codeine [Codeine] Allergy (Verified 08/23/11 01:40) nickel [Nickel] Allergy (Verified 08/23/11 01:40) nitrofurantoin [Nitrofurantoin] Allergy (Verified 08/23/11 01:40) pseudoephedrine HCl [From Sudafed] Allergy (Verified 08/23/11 01:40) Sulfa (Sulfonamide Antibiotics) Allergy (Verified 08/23/11 01:40) diltiazem HCl [From Cardizem] Adverse Reaction (Intermediate, Verified 08/26/11 11:29) Past Medical History - Social History Smoking Status: Never Smoker Family History: Reviewed & Not Pertinent - Past Medical History Cardiac Medical History: Reports: Hx Heart Murmur Denies: Hx Atrial Fibrillation, Hx Congestive Heart Failure, Hx Coronary Artery Disease, Hx Heart Attack, Hx Hypercholesterolemia, Hx Hypertension, Hx Peripheral Vascular Disease, Hx Pulmonary Embolism Pulmonary Medical History: Reports: Hx Bronchitis Denies: Hx Asthma, Hx COPD, Hx Pneumonia, Hx Respiratory Failure, Hx Sleep Apnea, Hx Tuberculosis Neurological Medical History: Denies: Hx Cerebrovascular Accident, Hx Seizures Renal/ Medical History: Denies: Hx End Stage Renal Disease, Hx Kidney Stones, Hx Ovarian Cysts, Hx Peritoneal Dialysis, Hx Pelvic Inflammatory Disease Malignancy Medical History: Denies: Hx Breast Cancer, Hx Cervical Cancer, Hx Leukemia, Hx Lung Cancer, Hx Ovarian Cancer GI Medical History: Denies: Hx Crohn's Disease, Hx Gastroesophageal Reflux Disease, Hx Hepatitis, Hx Hiatal Hernia, Hx Irritable Bowel, Hx Liver Failure, Hx Pancreatitis, Hx Ulcer Infectious Medical History: Denies: Hx Hepatitis, Hx HIV Past Surgical History: Reports: Hx Appendectomy, Hx Section, Hx Hysterectomy, Hx Tonsillectomy. Denies: Hx Bowel Surgery, Hx Cholecystectomy, Hx Colostomy, Hx Coronary Artery Bypass Graft, Hx Gastric Bypass Surgery, Hx Herniorrhaphy, Hx Mastectomy, Hx Open Heart Surgery, Hx Pacemaker, Hx Tubal Ligation - Immunizations Hx Diphtheria, Pertussis, Tetanus Vaccination: Yes Hx Pneumococcal Vaccination: 03/13/06 Course - Re-evaluation Re-evalutation: 01/01/19 09:25 Vitals reviewed. Nurse notes reviewed. Patient presented with strokelike symptoms. Her onset was yesterday at 10:30 PM. She is outside the window for TPA. Her NIH is 3 and she is on Eliquis also excluding her from TPA. 01/01/19 11:36 Patient reevaluated and symptoms are unchanged. NIH is still 3. Patient has a area of hypoattenuation on her CT scan that is new from prior studies. There is no intracranial hemorrhage. Patient's blood work is unremarkable. Chest x-ray shows no acute process but does have have some cardiomegaly and COPD changes. Patient will be admitted to the hospital for further evaluation of her acute stroke symptoms. Case discussed with Dr. Mathews who accepts admission. Laboratory 01/01/19 01/01/19 01/01/19 10:30 10:30 10:30 WBC 4.8 RBC 4.34 Hgb 13.7 Hct 40.7 MCV 94 MCH 31.6 MCHC 33.6 RDW 13.3 Plt Count 171 Lymph % (Auto) 16.4 [place] % (Auto) 8.0 Eos % (Auto) 0.9 Baso % (Auto) 0.5 Absolute Neuts (auto) 3.6 Absolute Lymphs (auto) 0.8 Absolute Monos (auto) 0.4 Absolute Eos (auto) 0.0 Absolute Basos (auto) 0.0 Seg Neutrophils % 74.2 PT 14.7 INR 1.14 APTT 31.9 Sodium 141.1 Potassium 4.2 Chloride 106 Carbon Dioxide 29 Anion Gap 6 BUN 21 H Creatinine 0.76 Est GFR ( Amer) > 60 Est GFR (MDRD) Non-Af > 60 Glucose 92 Calcium 9.3 Total Bilirubin 0.8 Direct Bilirubin 0.0 Neonat Total Bilirubin Not Reportable Neonat Direct Bilirubin Not Reportable Neonat Indirect Bili Not Reportable AST 25 ALT 15 Alkaline Phosphatase 75 Creatine Kinase 81 CK-MB (CK-2) Troponin I Total Protein 6.8 Albumin 3.9 01/01/19 10:30 WBC RBC Hgb Hct MCV MCH MCHC RDW Plt Count Lymph % (Auto) [place] % (Auto) Eos % (Auto) Baso % (Auto) Absolute Neuts (auto) Absolute Lymphs (auto) Absolute Monos (auto) Absolute Eos (auto) Absolute Basos (auto) Seg Neutrophils % PT INR APTT Sodium Potassium Chloride Carbon Dioxide Anion Gap BUN Creatinine Est GFR ( Amer) Est GFR (MDRD) Non-Af Glucose Calcium Total Bilirubin Direct Bilirubin Neonat Total Bilirubin Neonat Direct Bilirubin Neonat Indirect Bili AST ALT Alkaline Phosphatase Creatine Kinase CK-MB (CK-2) 0.95 Troponin I < 0.012 Total Protein Albumin Chest X-Ray 01/01/19 09:13 IMPRESSION: Findings of COPD and cardiomegaly without a superimposed acute cardiopulmonary process. Head CT 01/01/19 09:13 IMPRESSION: New area of hypoattenuation within the right larose radiata that could represent the sequela of an age-indeterminate ischemic insult. Correlation with MRI is recommended. EVIDENCE OF ACUTE STROKE: NO. - Laboratory Result Diagrams: 01/01/19 10:30 01/01/19 10:30 ED NIH Stroke Scale - NIH Stroke Scale When completed:: Before Alteplase *: 1. NIH scale should be completed with appropriate accompanying assessment tools. *: 2. The NIH should reflect what the patient is capable of doing and should not be coached by the clinician. 1a. Level of Consciousness: 0=Alert;keenly responsive -: 1=Drowsy -: 2=Obtunded -: 3=Coma/unresponsive or reflex to noxious stimuli. 1a. Responses: 0 1b. Orientation Questions: a. What month is it? -: b. How old are you? -: 0=Answers both questions correctly. -: 1=Answers one question correctly or patient is intubated or has orotracheal trauma. -: 2=Answers neither question correctly. 1b. Responses: 0 1c. Response to commands: a. Open and close eyes? -: b. Cardiology Rn and release hand? -: Credit is given despite weakness. Demonstration of task is permitted. Substitute command if hands cannot be used. -: 0=Performs both tasks correctly -: 1=Performs one task correctly -: 2=Performs neither task correctly 1c. Responses: 0 2. Gaze: Establish eye contact and instruct patient to "Follow my finger" -: 0=Normal -: 1=Partial gaze palsy. Gaze is abnormal in one or both eyes, but where forced deviation or total gaze paresis is not present. -: 2=Forced deviation or total gaze paresis. 2. Responses: 0 3. Visual [place]: Sees fingers in all four quadrants. -: 0=No visual loss. -: 1=Partial hemianopsia. -: 2=Complete hemianopsia. -: 3=Bilateral hemianopsia (including Cortical blindness) 3. Responses: 0 4. Facial Movement: Instruct patient to: -: a. Show me your teeth -: b. Raise your eyebrows -: c. Close your eyes -: d. Smile -: 0=Normal symmetrical movement -: 1=Minor paralysis (flattened nasolabial fold, asymmetry on smiling). -: 2=Partial paralysis (total or near total paralysis of lower face). -: 3=Complete paralysis of upper and lower face 4. Responses: 1 5. Motor functions (left arm): Alternate sides and extend each arm with palms down (90 degrees if sitting or 45 degrees for supine). -: 0=No drift;limb holds for full 10 seconds. -: 1=Drift; limb holds but drifts down before full 10 seconds, but does not hit bed. -: 2=Some effort against gravity; limb cannot get to or maintain position. -: 3=No effort against gravity; limb falls. -: 4=No movement. -: UN=Amputation, joint fusion, explain in comments. 5. Responses (left arm): 0 5. Motor Functions (right arm): Alternate sides and extend each arm with palms down (90 degrees if sitting or 45 degrees for supine). -: 0=No drift;limb holds for full 10 seconds. -: 1=Drift; limb holds but drifts down before full 10 seconds, but does not hit bed. -: 2=Some effort against gravity; limb cannot get to or maintain position. -: 3=No effort against gravity; limb falls. -: 4=No movement. -: UN=Amputation, joint fusion, explain in comments. 5. Responses (right arm): 0 6. Motor Functions (left leg): With patient lying supine, alternate sides and extend each leg (30 degrees always while supine). -: 0=No drift, leg holds position for full 5 seconds -: 1=Drift; leg falls before full 5 seconds but does not hit bed. -: 2=Some effort against gravity, leg falls to bed but some effort against gravity. -: 3=No effort against gravity, leg falls to bed immediately. -: 4=No movement. -: UN=Amputation, joint fusion; explain in comments. 6. Responses (left leg): 0 6. Motor Functions (right leg): With patient lying supine, alternate sides and extend each leg (30 degrees always while supine). -: 0=No drift, leg holds position for full 5 seconds -: 1=Drift; leg falls before full 5 seconds but does not hit bed. -: 2=Some effort against gravity, leg falls to bed but some effort against gravity. -: 3=No effort against gravity, leg falls to bed immediately. -: 4=No movement. -: UN=Amputation, joint fusion; explain in comments. 6. Responses (right leg): 1 7. Limb Ataxia: With eyes open instruct patient to: -: a. "Touch your finger to your nose". -: b. "Touch your heel to your hardin" -: 0=Absent -: 1=Present in one limb. -: 2=Present in two limbs. -: UN=Amputation or joint fusion; explain in comments. 7. Responses: 0 8. Sensory: Test sensation using pinprick or noxious stimuli. Test as many body parts as possible. -: 0=Normal;no sensory loss -: 1=Mile to moderate sensory loss (patient feels pin prick but is less sharp on affected side). -: 2=Severe or total sensory loss. 8. Responses: 0 9. Best Language: Instruct patient to: -: a. "Describe what you see in this picture." -: b. "Name the items in this picture." -: c. "Read these sentences." -: 0=No aphasia, normal -: 1=Mild to moderate aphasia. -: 2=Severe aphasia -: 3=Mute, global aphasia, no usable speech or auditory comprehension. 9. Responses: 0 10. Articulation, Dysarthia: Instruct patient to: -: "Read these words" or "Repeat these words" -: 0=Normal -: 1=Mild to moderate; patient may slur some words but can be understood without difficulty. -: 2=Severe; patients speech so slurred as to be unintelligible in the absence of dysphasia. -: UN=Intubated or other physical barrier, explain in comments. 10. Responses: 1 11. Extinction or inattention: 0=No abnormality -: 1= Visual, tactile, auditory, spatial, or personal inattention or extinction to bilateral simulation in one or the sensory modalities. -: 2=Profound rosa-inattention or rosa-inattention to more than one modality; does not recognize own hand. 11. Responses: 0 Total Score: 3 Discharge - Discharge Clinical Impression: Stroke-like symptoms, Slurred speech, Right leg weakness, Facial droop Condition: Stable Disposition: ADMITTED INPATIENT Admitting Provider: Reid (Hospitalist) Unit Admitted: IMCU Referrals: CLAUDIA BARROS MD [ACTIVE STAFF] - Follow up as needed
--- NOTE | 2019-01-01 09:59 | RADIOLOGY REPORT (SQ) ---
EXAM DESCRIPTION: CT HEAD WITHOUT COMPLETED DATE/TIME: 01/01/2019 9:29 am REASON FOR STUDY: stroke s/s COMPARISON: MRI of the head without contrast from 08/12/[address] of the head without contrast 017. TECHNIQUE: Axial images acquired through the brain without intravenous contrast. Images reviewed wi th bone, brain and subdural windows. Additional sagittal and coronal reconstructions were generated. Images stored on PACS. All CT scanners at this facility use dose modulation, iterative reconstruction, and/or weight based d osing when appropriate to reduce radiation dose to as low as reasonably achievable (ALARA). [facility]: Dose Right [facility]: CareDose [facility]: Dose Right [facility]: Teradose 4D [facility]: Backupify RADIATION DOSE: CT Rad equipment meets quality standard of care and radiation dose reduction techniq ues were employed. CTDIvol: 53.2 mGy. DLP: 1070 mGy-cm. mGy. LIMITATIONS: None. FINDINGS: There is an area of hypoattenuation within the right larose radiata at that is new from 08/12/2016. There is no acute intracranial hemorrhage, extra-axial fluid collection, mass effect, midlin e shift, or hyperdense artery sign. There is no effacement of the cerebral sulci or basal subarachno id cisterns. The caliber of the ventricles is concordant with the degree of sulcation and unchanged from 08/12/2016. The globes are aphakic. The orbits are intact. There is an incidental torus palatinus. The paranasa l sinuses are clear. There is no fracture of the calvarium. IMPRESSION: New area of hypoattenuation within the right larose radiata that could represent the seq uela of an age-indeterminate ischemic insult. Correlation with MRI is recommended. EVIDENCE OF ACUTE STROKE: NO. COMMENT: This report was called to TUTU ASHLEY DO at09:38 on 01/01/2019. Quality ID # [id number]: Final reports with documentation of one or more dose reduction techniques (e.g., Au tomated exposure control, adjustment of the mA and/or kV according to patient size, use of iterative reconstruction technique) TECHNICAL DOCUMENTATION: JOB ID: [id number] [email or web address]- All Rights Reserved Reading location - IP/workstation name: [email or web address]
[2019-01-01 10:39] LABS: ABSOLUTE LYMPHOCYTES (AUTO) 0.8 10^3/uL (0.5-4.7); ABSOLUTE MONOCYTES (AUTO) 0.4 10^3/uL (0.1-1.4); ABSOLUTE NEUT (AUTO) 3.6 10^3/uL (1.7-8.2); BASOPHILS % (AUTO) 0.5 % (0-2); EOSINOPHILS % (AUTO) 0.9 % (0-6); HEMATOCRIT 40.7 % (36.0-47.0); HEMOGLOBIN 13.7 g/dL (12.0-15.5); LYMPHOCYTES % (AUTO) 16.4 % (13-45); MEAN CORPUSCULAR HEMOGLOBIN 31.6 pg (27.0-33.4); MEAN CORPUSCULAR HGB CONC 33.6 g/dL (32.0-36.0); MEAN CORPUSCULAR VOLUME 94 fl (80-97); PLATELET COUNT 171 10^3/uL (150-450); RED BLOOD COUNT 4.34 10^6/uL (3.72-5.28); RED CELL DISTRIBUTION WIDTH 13.3 % (11.5-14.0); SEGMENTED NEUTROPHILS % (AUTO) 74.2 % (42-78); TOTAL CELLS COUNTED % (AUTO) 100 %; WHITE BLOOD COUNT 4.8 10^3/uL (4.0-10.5)
[2019-01-01 10:42] LABS: INTERNATIONAL RATION (INR) 1.14
[2019-01-01 10:43] LABS: PARTIAL THROMBOPLASTIN TIME 31.9 SEC (23.5-35.8)
[2019-01-01 10:45] LABS: PROTHROMBIN TIME 14.7 SEC (11.4-15.4)
--- NOTE | 2019-01-01 10:57 | RADIOLOGY REPORT (SQ) ---
EXAM DESCRIPTION: CHEST SINGLE VIEW COMPLETED DATE/TIME: 01/01/2019 9:57 am REASON FOR STUDY: stroke s/s COMPARISON: AP view of the chest from 08/22/2011. EXAM PARAMETERS: NUMBER OF VIEWS: One view. TECHNIQUE: Single frontal radiographic view of the chest acquired. RADIATION DOSE: NA LIMITATIONS: None. FINDINGS: LUNGS AND PLEURA: Findings of COPD without a superimposed consolidation, sizeable pleural effusion or pneumothorax. MEDIASTINUM AND HILAR STRUCTURES: Stable mediastinal and hilar contours. HEART AND VASCULAR STRUCTURES: Cardiac silhouette is enlarged but stable. The pulmonary vasculature is within normal limits. BONES: No acute findings. HARDWARE: None in the chest. OTHER: No other finding. IMPRESSION: Findings of COPD and cardiomegaly without a superimposed acute cardiopulmonary process. TECHNICAL DOCUMENTATION: JOB ID: [id number] [employer]- All Rights Reserved Reading location - IP/workstation name: [email or web address]
[2019-01-01 11:00] LABS: ALBUMIN 3.9 g/dL (3.5-5.0); ALKALINE PHOSPHATASE 75 U/L (38-126); ANION GAP 6 (5-19); ASPARTATE AMINO TRANSFERASE 25 U/L (14-36); BILIRUBIN,TOTAL 0.8 mg/dL (0.2-1.3); BLOOD UREA NITROGEN 21 mg/dL (7-20); CALCIUM 9.3 mg/dL (8.4-10.2); CARBON DIOXIDE 29 mmol/L (22-30); CHLORIDE 106 mmol/L (98-107); CREATINE KINASE 81 U/L (30-135); GLUCOSE 92 mg/dL (75-110); POTASSIUM 4.2 mmol/L (3.6-5.0); TOTAL PROTEIN 6.8 g/dL (6.3-8.2)
[2019-01-01 11:09] LABS: CREATINE KINASE MB 0.95 ng/mL (<4.55)
[2019-01-01 11:16] LABS: TROPONIN I < 0.012 ng/mL
[2019-01-01] MEDS ORDERED: ACETAMINOPHEN 325 MG TABLET PO PRN (13:12)
--- NOTE | 2019-01-01 17:45 | PDOC H&P ---
History of Present Illness Admission Date/PCP: 01/01/19 11:46 CLAUDIA HARRIS MD History of Present Illness: KOJO SALAS is a 78 year old female with a history of mitral valve repl acement and atrial fib converted to sinus rhythm and maintained on Tikosyn who had a TIA and came to this hospital in August 2016 and had a stroke in the hospital in [place] when she was visiting her daughter in January 2018, who presents today after having the onset of some right hand weakness and some return of her right-sided facial droop that began last night. She said that she thought that it would go away but it has not. She came in this morning because she was worried that she had had another stroke. She had some facial droop with her stroke in 2018 but she said that that has essentially gone away and when it came back she was worried. She had alternating between saying she had numbness and that she had weakness, but after persistent questioning I was able to ascertain that she never really had any numbness, mostly just trouble using her right hand. She denied any trouble walking or any numbness or weakness in her right leg. She has not had any trouble chewing or swallowing. She is not diabetic. She does not smoke. There is no family history of stroke. CT scan showed something on the right side that was not there on the previous imaging that was done back in 2017, but it could be the effect of the stroke she had in 2018, so she is being admitted for further evaluation. Past Medical History Cardiac Medical History: Reports: Heart Murmur Denies: Atrial Fibrillation, Congestive Heart Failure, Coronary Artery Disease, Myocardial Infarction, Hyperlipidema, Hypertension, Peripheral Vascular Disease, Pulmonary Embolism Pulmonary Medical History: Reports: Bronchitis Denies: Asthma, Chronic Obstructive Pulmonary Disease (COPD), Pneumonia, Respiratory Failure, Sleep Apnea, Tuberculosis Neurological Medical History: Denies: Seizures Renal/ Medical History: Denies: End Stage Renal Disease Malignancy Medical History: Denies: Breast Cancer, Cervical Cancer, Leukemia, Lung Cancer, Ovarian Cancer GI Medical History: Denies: Crohn's Disease, Gastroesophageal Reflux Disease, Hepatitis, Hiatal Hernia Hematology: Reports: Anemia - acute blood loss after heart valve repair Denies: Hemophilia, Sickle Cell Disease Infectious Medical History: Denies: HIV Past Surgical History Past Surgical History: Reports: Appendectomy, Section, Hysterectomy, Tonsillectomy Denies: Amputation, Cholecystectomy, Colostomy, Coronary Artery Bypass Graft, Gastric Bypass Surgery, Herniorrhaphy, Mastectomy, Pacemaker, Tubal Ligation Social History Smoking Status: Never Smoker Electronic Cigarette use?: No Frequency of Alcohol Use: None Hx Recreational Drug Use: No Drugs: None Hx Prescription Drug Abuse: No Family History Family History: Reviewed & Not Pertinent Parental Family History Reviewed: Yes - No history of stroke Children Family History Reviewed: Yes - No known problems Sibling(s) Family History Reviewed.: Yes - 1 of her siblings had a mitral valve issue like she did Medication/Allergy Home Medications: Apixaban [Eliquis 5 mg Tablet] 5 mg PO Q12@0900,209901/01/19 Atorvastatin Calcium [Lipitor 10 mg Tablet] 10 mg PO QHS 01/01/19 Cholecalciferol (Vitamin D3) [Vitamin D3] 50,000 unit PO [id number] 01/01/19 Dofetilide [Tikosyn] 250 mcg PO Q12@0900,209901/01/19 Allergies/Adverse Reactions: adhesive tape [Adhesive Tape] Allergy (Verified 08/23/11 01:40) alendronate sodium [From Fosamax] Allergy (Verified 08/23/11 01:40) codeine [Codeine] Allergy (Verified 08/23/11 01:40) nickel [Nickel] Allergy (Verified 08/23/11 01:40) nitrofurantoin [Nitrofurantoin] Allergy (Verified 08/23/11 01:40) pseudoephedrine HCl [From Sudafed] Allergy (Verified 08/23/11 01:40) Sulfa (Sulfonamide Antibiotics) Allergy (Verified 08/23/11 01:40) diltiazem HCl [From Cardizem] Adverse Reaction (Intermediate, Verified 08/26/11 11:29) Review of Systems All systems: reviewed and no additional remarkable complaints except as stated - All systems were reviewed and were negative except as noted above Physical Exam Vital Signs: Temp Pulse Resp BP Pulse Ox 97.8 F 81 14 115/74 98 01/01/19 10:01 01/01/19 15:00 01/01/19 15:00 01/01/19 15:00 01/01/19 15:00 Intake & Output 12/31/18 01/01/19 01/02/19 06:59 06:59 06:59 Weight 60.781 kg General appearance: PRESENT: no acute distress, cooperative, disheveled Head exam: PRESENT: atraumatic, normocephalic Eye exam: PRESENT: EOMI, PERRLA. ABSENT: conjunctival injection, nystagmus, scleral icterus Ear exam: PRESENT: normal external ear exam Mouth exam: PRESENT: moist, neck supple Throat exam: ABSENT: post pharyngeal erythema Neck exam: PRESENT: full ROM. ABSENT: carotid bruit, JVD, lymphadenopathy, meningismus, tenderness, thyromegaly Respiratory exam: PRESENT: clear to auscultation loreta, symmetrical, unlabored. ABSENT: accessory muscle use, chest wall tenderness, crackles, prolonged expiratory phas, rhonchi, tachypnea, wheezes Cardiovascular exam: PRESENT: RRR - Occasional irregularity, +S1, +S2 Pulses: PRESENT: normal carotid pulses Vascular exam: PRESENT: normal capillary refill GI/Abdominal exam: PRESENT: normal bowel sounds, soft. ABSENT: distended, guarding, rebound, tenderness Extremities exam: ABSENT: clubbing, pedal edema Musculoskeletal exam: PRESENT: normal inspection. ABSENT: deformity Neurological exam: PRESENT: alert, awake, oriented to person, oriented to place, oriented to time, oriented to situation, motor sensory deficit - She had about 3 out of 5 strength in her right hand compared to 5 out of 5 on the left, sensation was intact. ABSENT: CN II-XII grossly intact - She had some right- sided facial droop and a little bit of dysarthria Psychiatric exam: PRESENT: appropriate affect, normal mood Skin exam: PRESENT: dry, warm Results Laboratory Results: 01/01/19 10:30 01/01/19 10:30 01/01/19 01/01/19 10:30 10:30 WBC 4.8 RBC 4.34 Hgb 13.7 Hct 40.7 MCV 94 MCH 31.6 MCHC 33.6 RDW 13.3 Plt Count 171 Seg Neutrophils % 74.2 Sodium 141.1 Potassium 4.2 Chloride 106 Carbon Dioxide 29 Anion Gap 6 BUN 21 H Creatinine 0.76 Est GFR ( Amer) > 60 Glucose 92 Calcium 9.3 Total Bilirubin 0.8 AST 25 Alkaline Phosphatase 75 Total Protein 6.8 Albumin 3.9 01/01/19 01/01/19 10:30 10:30 Creatine Kinase 81 CK-MB (CK-2) 0.95 Troponin I < 0.012 Impressions: Chest X-Ray 01/01/19 09:13 IMPRESSION: Findings of COPD and cardiomegaly without a superimposed acute cardiopulmonary process. Head CT 01/01/19 09:13 IMPRESSION: New area of hypoattenuation within the right larose radiata that could represent the sequela of an age-indeterminate ischemic insult. Correlation with MRI is recommended. EVIDENCE OF ACUTE STROKE: NO. Assessment and Plan - Diagnosis (1) CVA (cerebral vascular accident) Qualifiers: CVA mechanism: unspecified Qualified Code(s): I63.9 - Cerebral infarction, unspecified Is this a current diagnosis for this admission?: Yes Plan: With her right hand weakness and her facial droop and slurred speech, this sounds like it could be the "clumsy hand syndrome" that can be seen with lacunar infarcts in the basal venkat, basal ganglia, larose radiata. We will make sure she is on a statin medication. She is already anticoagulated will continue that. Her blood pressure is not substantially elevated but will hold off on trying to lower it at any point soon. We will get an MRI of the brain to better evaluate. We will have her seen by PT, OT, and speech therapy. Her INR was low, but she says she does not take warfarin. She says she was switched over to Eliquis after she had her stroke in [place] back in January 2018. (2) Chronic a-fib Is this a current diagnosis for this admission?: Yes Plan: Continue Tikosyn and Eliquis - Time Time Spent with patient: 35 or more minutes - Inpatient Certification Based on my medical assessment, after consideration of the patient's comorbidities, presenting symptoms, or acuity I expect that the services needed warrant INPATIENT care.: Yes I certify that my determination is in accordance with my understanding of Medicare's requirements for reasonable and necessary INPATIENT services [42 CFR 412.3e].: Yes Medical Necessity: Need Close Monitoring Due to Risk of Patient Decompensation, Need For Continuous Telemetry Monitoring, Need for Neurological Checks
--- NOTE | 2019-01-01 18:58 | RADIOLOGY REPORT (SQ) ---
EXAM DESCRIPTION: MRI HEAD WITHOUT COMPLETED DATE/TIME: 01/01/2019 6:20 pm REASON FOR STUDY: acute cva COMPARISON: CT 01/01/2019. MR 08/12/2016 TECHNIQUE: Multiplanar imaging includes non-contrasted T1, T2, FLAIR, and diffusion with ADC map seq uences. Images stored on PACS. LIMITATIONS: None. FINDINGS: ANATOMY: No anomalies. Normal vascular flow voids. Pituitary fossa normal. CSF SPACES: Normal in size and contour. No hemorrhage. CEREBRUM: Sulci and gyri normal in size and contour. Areas of increased white matter signal on FLAIR imaging. No evidence of hemorrhage, mass, or extraaxial fluid collection. Old lacunar infarct in t he larose radiata on the right. Small area of restricted diffusion in the larose radiata on the left . POSTERIOR FOSSA: No signal alteration. No hemorrhage. No edema, masses or mass effect. Internal carrie tory canals, cerebello-pontine angles, mastoids normal. DIFFUSION IMAGING: Small area of restricted diffusion in the larose radiata on the left. ORBITS: No masses. Globes normal. PARANASAL SINUSES: No fluid levels. Mucosa normal. OTHER: No other significant finding. IMPRESSION: Chronic microvascular ischemia with what appears to be an acute/ subacute lacunar infarc tion in the larose radiata on the left. EVIDENCE OF ACUTE STROKE: NO. TECHNICAL DOCUMENTATION: JOB ID: [id number] [email or web address]- All Rights Reserved Reading location - IP/workstation name: [email or web address]
[2019-01-01] MEDS ORDERED: APIXABAN 5 MG TABLET PO ONE (23:15)
--- NOTE | 2019-01-01 23:51 | EKG REPORT ---
SEVERITY:- ABNORMAL ECG - SINUS RHYTHM INFERIOR INFARCT, AGE INDETERMINATE LATERAL INFARCT, OLD PROBABLE ANTEROSEPTAL INFARCT, AGE INDETERM : Confirmed by: Joy Hirsch MD 01-Jan-2019 23:50:57
[2019-01-02] MEDS ORDERED: ATORVASTATIN CALCIUM 40 MG TABLET PO ONE (04:15)
[2019-01-02] MEDS ORDERED: HEPARIN SOD (PORCINE) 5,000 UNIT/ML 1 ML VIAL SUBCUT SCH (06:00)
[2019-01-02 07:04] LABS: HEMATOCRIT 38.9 % (36.0-47.0); HEMOGLOBIN 13.1 g/dL (12.0-15.5); MEAN CORPUSCULAR HEMOGLOBIN 31.6 pg (27.0-33.4); MEAN CORPUSCULAR HGB CONC 33.7 g/dL (32.0-36.0); MEAN CORPUSCULAR VOLUME 94 fl (80-97); PLATELET COUNT 170 10^3/uL (150-450); RED BLOOD COUNT 4.14 10^6/uL (3.72-5.28); WHITE BLOOD COUNT 4.9 10^3/uL (4.0-10.5)
[2019-01-02 07:20] LABS: ANION GAP 9 (5-19); BLOOD UREA NITROGEN 17 mg/dL (7-20); CALCIUM 8.8 mg/dL (8.4-10.2); CARBON DIOXIDE 25 mmol/L (22-30); CHLORIDE 109 mmol/L (98-107); CHOLESTEROL 123.22 mg/dL (0-200); GLUCOSE 90 mg/dL (75-110); POTASSIUM 3.9 mmol/L (3.6-5.0); TRIGLYCERIDES 40 mg/dL (<150)
[2019-01-02 07:30] LABS: DIRECT LDL 61 mg/dL (<100)
[2019-01-02] MEDS ORDERED: ASPIRIN 325 MG TABLET PO SCH ×2 (10:00)
[2019-01-02] MEDS: APIXABAN 5 MG TABLET PO SCH ×2 (10:28→21:42)
--- NOTE | 2019-01-02 14:51 | PDOC PROGRESS REPORT ---
Subjective Progress Note for:: 01/02/19 Subjective:: No adverse events overnight. No new complaints. She is regaining the use of her hand and her facial droop is resolved. She is able to ambulate independently. She is eating and drinking without difficulty. She was concerned because her medications were not ordered for her last night so she has not had her Tikosyn. Reason For Visit: ACUTE CVA Physical Exam Vital Signs: Temp Pulse Resp BP Pulse Ox 98.1 F 70 17 116/63 98 01/02/19 12:07 01/02/19 12:07 01/02/19 12:07 01/02/19 12:07 01/02/19 12:07 Intake & Output 01/01/19 01/02/19 01/03/19 06:59 06:59 06:59 Intake Total 320 Balance 320 Weight 61.3 kg General appearance: PRESENT: no acute distress, cooperative, thin Respiratory exam: PRESENT: clear to auscultation loreta, symmetrical, unlabored. ABSENT: accessory muscle use, chest wall tenderness, crackles, prolonged expiratory phas, rhonchi, tachypnea, wheezes Cardiovascular exam: PRESENT: RRR, +S1, +S2 Pulses: PRESENT: normal carotid pulses Vascular exam: PRESENT: normal capillary refill GI/Abdominal exam: PRESENT: normal bowel sounds, soft. ABSENT: distended, g uarding, rebound, tenderness Extremities exam: ABSENT: clubbing, pedal edema Musculoskeletal exam: PRESENT: normal inspection. ABSENT: deformity Neurological exam: PRESENT: alert, awake, oriented to person, oriented to place, oriented to situation, CN II-XII grossly intact. ABSENT: motor sensory deficit Psychiatric exam: PRESENT: appropriate affect, normal mood Skin exam: PRESENT: dry, warm Results Laboratory Results: 01/02/19 05:38 01/02/19 05:38 01/02/19 01/02/19 05:38 05:38 WBC 4.9 RBC 4.14 Hgb 13.1 Hct 38.9 MCV 94 MCH 31.6 MCHC 33.7 RDW 13.0 Plt Count 170 Sodium 142.8 Potassium 3.9 Chloride 109 H Carbon Dioxide 25 Anion Gap 9 BUN 17 Creatinine 0.61 Est GFR ( Amer) > 60 Glucose 90 Calcium 8.8 Triglycerides 40 Cholesterol 123.22 LDL Cholesterol Direct 61 VLDL Cholesterol 8.0 L HDL Cholesterol 57 01/01/19 01/01/19 10:30 10:30 Creatine Kinase 81 CK-MB (CK-2) 0.95 Troponin I < 0.012 Impressions: Head MRI 01/01/19 00:00 IMPRESSION: Chronic microvascular ischemia with what appears to be an acute/ subacute lacunar infarction in the larose radiata on the left. EVIDENCE OF ACUTE STROKE: NO. Chest X-Ray 01/01/19 09:13 IMPRESSION: Findings of COPD and cardiomegaly without a superimposed acute cardiopulmonary process. Head CT 01/01/19 09:13 IMPRESSION: New area of hypoattenuation within the right larose radiata that could represent the sequela of an age-indeterminate ischemic insult. Correlation with MRI is recommended. EVIDENCE OF ACUTE STROKE: NO. Assessment and Plan - Diagnosis (1) CVA (cerebral vascular accident) Qualifiers: CVA mechanism: unspecified Qualified Code(s): I63.9 - Cerebral infarction, unspecified Is this a current diagnosis for this admission?: Yes Plan: Old stroke was seen on head CT last night. The new stroke showed up on the other side of the brain on the MRI. She is already anticoagulated so she does not need an aspirin. She is already on a statin.. She did well for speech therapy. It seems her functional deficits have resolved. (2) Chronic a-fib Is this a current diagnosis for this admission?: Yes Plan: She is anticoagulated. She is on Tikosyn at home. I made sure that it was reordered. Because she has not had her Tikosyn today, I am going to restart tonight and then observe her overnight on telemetry to make sure she does not develop an arrhythmia. - Time Time Spent with patient: 25-34 minutes
[2019-01-02] MEDS: DOFETILIDE 125 MCG CAPSULE PO SCH (21:42)
[2019-01-02] MEDS ORDERED: ATORVASTATIN CALCIUM 10 MG TABLET PO SCH (22:00)
[2019-01-02] MEDS ORDERED: ATORVASTATIN CALCIUM 40 MG TABLET PO SCH (22:00)
[2019-01-03] MEDS: DOFETILIDE 125 MCG CAPSULE PO SCH (09:50)
[2019-01-03] MEDS: APIXABAN 5 MG TABLET PO SCH (09:51)
[2019-01-03 12:56] VITALS: BP 125/73
--- NOTE | 2019-01-03 15:25 | PDOC DISCHARGE SUMMARY ---
Impression - Admit/DC Date/PCP Admission Date/Primary Care Provider: 01/01/19 11:46 CLAUDIA HARRIS MD Discharge Date: 01/03/19 - Discharge Diagnosis (1) CVA (cerebral vascular accident) Is this a current diagnosis for this admission?: Yes (2) Chronic a-fib Is this a current diagnosis for this admission?: Yes - Additional Information Resuscitation Status: Full Code Discharge Diet: Cardiac Discharge Activity: Activity As Tolerated, Balance Activity w/Rest Referrals: CLAUDIA BARROS MD [ACTIVE STAFF] - 01/17/19 9:45 am Home Medications: Apixaban [Eliquis 5 mg Tablet] 5 mg PO Q12@0900,209901/01/19 Atorvastatin Calcium [Lipitor 10 mg Tablet] 10 mg PO QHS 01/01/19 Cholecalciferol (Vitamin D3) [Vitamin D3] 50,000 unit PO [id number] 01/01/19 Dofetilide [Tikosyn] 250 mcg PO Q12@0900,209901/01/19 History of Present Illiness History of Present Illness: KOJO SALAS is a 78 year old female with a history of mitral valve replacement and atrial fib converted to sinus rhythm and maintained on Tikosyn who had a TIA and came to this hospital in August 2016 and had a stroke in the hospital in [place] when she was visiting her daughter in January 2018, who presents today after having the onset of some right hand weakness and some return of her right-sided facial droop that began last night. She said that she thought that it would go away but it has not. She came in this morning because she was worried that she had had another stroke. She had some facial droop with her stroke in 2018 but she said that that has essentially gone away and when it came back she was worried. She had alternating between saying she had numbness and that she had weakness, but after persistent questioning I was able to ascertain that she never really had any numbness, mostly just trouble using her right hand. She denied any trouble walking or any numbness or weakness in her right leg. She has not had any trouble chewing or swallowing. She is not diabetic. She does not smoke. There is no family history of stroke. CT scan showed something on the right side that was not there on the previous imaging that was done back in 2017, but it could be the effect of the stroke she had in 2018, so she is being admitted for further evaluation. Hospital Course Hospital Course: She was kept on her home medications and her symptoms gradually resolved and by the next morning after she was admitted they had resolved completely. She was ambulating independently and had full use of her right hand. Her facial droop had resolved. From a risk factor modification standpoint, there is really not a whole lot else that she can do, except perhaps incorporate regular physical activity and do her daily regimen. Her atrial fibrillation is rate controlled and she is been in a sinus rhythm here on Tikosyn, and she is anticoagulated. She is on Lipitor her cholesterol is under good control. Her blood pressure control is excellent. She is not diabetic and her blood sugars have not been an issue here. She is not a smoker. She will resume all of her usual medications. She will follow-up with her primary care provider Dr. Barros approximately 1 week. Her labs and examination were reassuring and she was discharged in good condition. Physical Exam Vital Signs: Temp Pulse Resp BP Pulse Ox 97.6 F 68 16 125/73 98 01/03/19 12:01 01/03/19 12:01 01/03/19 12:01 01/03/19 11:48 01/03/19 12:01 Intake & Output 01/02/19 01/03/19 01/04/19 06:59 06:59 06:59 Intake Total 790 Balance 790 Weight 61.3 kg 61.3 kg General appearance: PRESENT: no acute distress, cooperative, thin Respiratory exam: PRESENT: clear to auscultation loreta, symmetrical, unlabored. ABSENT: accessory muscle use, chest wall tenderness, crackles, prolonged expiratory phas, rhonchi, tachypnea, wheezes Cardiovascular exam: PRESENT: RRR, +S1, +S2 Pulses: PRESENT: normal carotid pulses Vascular exam: PRESENT: normal capillary refill GI/Abdominal exam: PRESENT: normal bowel sounds, soft. ABSENT: distended, guarding, rebound, tenderness Extremities exam: ABSENT: clubbing, pedal edema Musculoskeletal exam: PRESENT: normal inspection. ABSENT: deformity Neurological exam: PRESENT: alert, awake, oriented to person, oriented to place, oriented to situation, CN II-XII grossly intact. ABSENT: motor sensory deficit Psychiatric exam: PRESENT: appropriate affect, normal mood Skin exam: PRESENT: dry, warm Results Laboratory Results: WBC 4.9 10^3/uL (4.0-10.5) 01/02/19 05:38 RBC 4.14 10^6/uL (3.72-5.28) 01/02/19 05:38 Hgb 13.1 g/dL (12.0-15.5) 01/02/19 05:38 Hct 38.9 % (36.0-47.0) 01/02/19 05:38 MCV 94 fl (80-97) 01/02/19 05:38 MCH 31.6 pg (27.0-33.4) 01/02/19 05:38 MCHC 33.7 g/dL (32.0-36.0) 01/02/19 05:38 RDW 13.0 % (11.5-14.0) 01/02/19 05:38 Plt Count 170 10^3/uL (150-450) 01/02/19 05:38 Lymph % (Auto) 16.4 % (13-45) 01/01/19 10:30 Carver % (Auto) 8.0 % (3-13) 01/01/19 10:30 Eos % (Auto) 0.9 % (0-6) 01/01/19 10:30 Baso % (Auto) 0.5 % (0-2) 01/01/19 10:30 Absolute Neuts (auto) 3.6 10^3/uL (1.7-8.2) 01/01/19 10:30 Absolute Lymphs (auto) 0.8 10^3/uL (0.5-4.7) 01/01/19 10:30 Absolute Monos (auto) 0.4 10^3/uL (0.1-1.4) 01/01/19 10:30 Absolute Eos (auto) 0.0 10^3/uL (0.0-0.6) 01/01/19 10:30 Absolute Basos (auto) 0.0 10^3/uL (0.0-0.2) 01/01/19 10:30 Seg Neutrophils % 74.2 % (42-78) 01/01/19 10:30 PT 14.7 SEC (11.4-15.4) 01/01/19 10:30 INR 1.14 01/01/19 10:30 APTT 31.9 SEC (23.5-35.8) 01/01/19 10:30 Sodium 142.8 mmol/L (137-145) 01/02/19 05:38 Potassium 3.9 mmol/L (3.6-5.0) 01/02/19 05:38 Chloride 109 mmol/L (98-107) H 01/02/19 05:38 Carbon Dioxide 25 mmol/L (22-30) 01/02/19 05:38 Anion Gap 9 (5-19) 01/02/19 05:38 BUN 17 mg/dL (7-20) 01/02/19 05:38 Creatinine 0.61 mg/dL (0.52-1.25) 01/02/19 05:38 Est GFR ( Amer) > 60 (>60) 01/02/19 05:38 Est GFR (MDRD) Non-Af > 60 (>60) 01/02/19 05:38 Glucose 90 mg/dL (75-110) 01/02/19 05:38 Calcium 8.8 mg/dL (8.4-10.2) 01/02/19 05:38 Total Bilirubin 0.8 mg/dL (0.2-1.3) 01/01/19 10:30 Direct Bilirubin 0.0 mg/dL (0.0-0.4) 01/01/19 10:30 Neonat Total Bilirubin Not Reportable 01/01/19 10:30 Neonat Direct Bilirubin Not Reportable 01/01/19 10:30 Neonat Indirect Bili Not Reportable 01/01/19 10:30 AST 25 U/L (14-36) 01/01/19 10:30 ALT 15 U/L (<35) 01/01/19 10:30 Alkaline Phosphatase 75 U/L (38-126) 01/01/19 10:30 Creatine Kinase 81 U/L (30-135) 01/01/19 10:30 CK-MB (CK-2) 0.95 ng/mL (<4.55) 01/01/19 10:30 Troponin I < 0.012 ng/mL 01/01/19 10:30 Total Protein 6.8 g/dL (6.3-8.2) 01/01/19 10:30 Albumin 3.9 g/dL (3.5-5.0) 01/01/19 10:30 Triglycerides 40 mg/dL (<150) 01/02/19 05:38 Cholesterol 123.22 mg/dL (0-200) 01/02/19 05:38 LDL Cholesterol Direct 61 mg/dL (<100) 01/02/19 05:38 VLDL Cholesterol 8.0 mg/dL (10-31) L 01/02/19 05:38 HDL Cholesterol 57 mg/dL (>40) 01/02/19 05:38 01/01/19 10:30 CK-MB (CK-2) 0.95 Troponin I < 0.012 Impressions: Head MRI 01/01/19 00:00 IMPRESSION: Chronic microvascular ischemia with what appears to be an acute/ subacute lacunar infarction in the larose radiata on the left. EVIDENCE OF ACUTE STROKE: NO. Chest X-Ray 01/01/19 09:13 IMPRESSION: Findings of COPD and cardiomegaly without a superimposed acute cardiopulmonary process. Head CT 01/01/19 09:13 IMPRESSION: New area of hypoattenuation within the right larose radiata that could represent the sequela of an age-indeterminate ischemic insult. Correlation with MRI is recommended. EVIDENCE OF ACUTE STROKE: NO. Plan Time Spent: Greater than 30 Minutes Stroke Is this a Stroke Patient?: Yes Stroke Pt being discharged on Anti-thrombolytic therapy?: Yes Reason(s) for not prescribing Anti-thrombolytic therapy:: Not indicated - Already on anticoagulation Stroke Pt being discharged on Anti-coagulation therapy?: Yes Stroke Pt being discharged on Statins?: Yes Acute Heart Failure - Is this a Heart Failure Patient?: No
== END 2019-01-03 13:55 | disposition home or self-care (01) | DRG 65 ==
LOC: ER 08:57 → EH 11:46 → 3W 18:56
PROVIDERS: ADMIT Family Medicine; ATTEND Family Medicine
DX: I63.9 Cerebral infarction, unspecified (principal); I48.20 Chronic atrial fibrillation, unspecified; I10 Essential (primary) hypertension; R29.810 Facial weakness; Z60.2 Problems related to living alone; Z79.01 Long term (current) use of anticoagulants; Z88.2 Allergy status to sulfonamides; Z88.8 Allergy status to other drugs, medicaments and biological substances; Z86.73 Personal history of transient ischemic attack (TIA), and cerebral infarction without residual deficits
CPT/HCPCS: 36415; 70450; 70551; 71045; 80048; 80053; 80061; 82550; 82553; 84484; 85025; 85027; 85610; 85730; 93005; 93010; 99285

== ENCOUNTER → 2020-03-19 | Outpatient (CLI) | payer MEDICARE, OTHER ==
[~2020-03-19] MED LIST: COVID-19 VACCINE (PFIZER)/PF 30 MCG/0.3 ML VIAL IM ONE; EPINEPHRINE INJ/PF 1 MG/1 ML AMPULE IM PRN
== END ==
LOC: EMPHEALTH 11:31
PROVIDERS: ATTEND Internal Medicine
DX: Z23 Encounter for immunization (principal)
CPT/HCPCS: 91300

== ENCOUNTER → 2020-04-09 | Outpatient (CLI) | payer MEDICARE, OTHER | LOC: EMPHEALTH 11:36 | PROVIDERS: ATTEND Internal Medicine | DX: Z23 Encounter for immunization (principal) | CPT/HCPCS: 91300 ==